=== PATIENT | female | born 1970 | race Caucasian/White ===

== ENCOUNTER → 2020-07-13 12:40 | Outpatient (CLI) | payer OTHER, SELFPAY ==
--- NOTE | ~2020-07-13 | CT_ITS ---
EXAMINATION: CT abdomen pelvis w con DATE: 07/13/2020 13:58 INDICATION: Left upper quadrant and right upper quadrant abdominal pain, left greater than right, geeta n occurs especially postprandially TECHNIQUE: Computed tomography (CT) of the abdomen and pelvis was performed with 100 cc Omnipaque 350 intravenous contrast. Automated exposure control and iterative reconstruction technique were employe d. Exam dose: 684.55 mGy-cm total exam DLP. COMPARISON: None. FINDINGS: Middle lobe calcified pulmonary granuloma. The lung bases are clear of infiltrate or consol idation. Normal heart size. No pericardial or pleural effusion. 5 mm probable left medial segment hepatic cyst. 5 mm probable right lower hepatic cyst. The gallbladder appears unremarkable. No bile duct or pancreatic duct dilatation. No pancreatic mass lesion or calcification. Normal splenic size. Normal morphology of the adrenal glands. Approximately 5 mm probable cyst of the anteromedial mid right kidney and additional very small lower pole right renal cyst is suggested. No urinary tract calculus or hydroureteronephrosis. The urinary bladder, uterus and adnexal areas are unremarkable. Normal caliber of the abdominal aorta. No intraperitoneal or retroperitoneal or pelvic mass lesion or adenopathy or ascites. Normal appendix. No bowel obstruction, bowel wall thickening, pneumatosis or intraperitoneal free air . Numerous fluid containing small bowel segments with scattered air-fluid levels are noted, without d ilatation or wall thickening.. The included skeletal structures are unremarkable. IMPRESSION: Probable hepatic and right renal small cysts Reviewed, dictated and finalized at Location A. Reviewed, dictated and finalized at location B. WARE DEVELOPER
== END ==
PROVIDERS: PCP Student in an Organized Health Care Education/Training Program; Visit Provider Student in an Organized Health Care Education/Training Program
DX: R10.12 Left upper quadrant pain (principal); R93.89 Abnormal findings on diagnostic imaging of other specified body structures
CPT/HCPCS: 74177; Q9967

== ENCOUNTER 2020-07-28 14:38 | Outpatient (CLI) | payer OTHER, SELFPAY ==
--- NOTE | ~2020-07-28 | MM_ITS ---
EXAMINATION: MM screening cody BI w lino HISTORY: Screening mammogram TECHNIQUE: Craniocaudal and mediolateral oblique 3-D tomosynthesis images were obtained and synthetic 2-D images were generated. CAD analysis was submitted and interpreted. COMPARISON: 06/01/2019, 05/15/2018, 04/03/2017 bilateral digital screening mammogram examinations BREAST PARENCHYMAL COMPOSITION: The breasts are heterogeneously dense, which may obscure small masses . FINDINGS: There is no evidence of suspicious mass, calcification, or architectural distortion to sugg est malignancy in either breast. There has been no suspicious interval change. IMPRESSION: 1. No mammographic evidence of malignancy. 2. Recommend routine screening mammography in one year. BI-RADS Category 1: Negative Reviewed, dictated and finalized at location A. E TRAINER
== END 2020-07-28 14:39 | disposition home or self-care (01) ==
LOC: ANHIMG 14:41
PROVIDERS: PCP Student in an Organized Health Care Education/Training Program; Visit Provider Obstetrics & Gynecology
DX: Z12.31 Encounter for screening mammogram for malignant neoplasm of breast (principal)
CPT/HCPCS: 77063; 77067

== ENCOUNTER → 2020-09-17 00:47 | Outpatient (CLI) | payer OTHER, SELFPAY ==
[2020-09-17 18:53] LABS: SARS-CoV-2 RNA PCR Negative
== END ==
PROVIDERS: PCP Student in an Organized Health Care Education/Training Program; Visit Provider Internal Medicine Gastroenterology
DX: Z01.812 Encounter for preprocedural laboratory examination (principal); Z20.822 Contact with and (suspected) exposure to COVID-19
CPT/HCPCS: C9803; U0003; U0005

== ENCOUNTER 2020-09-20 01:07 | Day surgery (SDC) | payer OTHER, SELFPAY ==
[2020-09-05 13:22] VITALS: BMI 25.8
[2020-09-20 08:49] VITALS: BP 134/86; PULSE 94; RESP 16; TEMP 36.9; O2SAT 99; BMI 25.0
[2020-09-20] MEDS: LACTATED RINGERS 1,000 ML 150 ML IV CONT (09:13)
--- NOTE | 2020-09-20 09:55 | WPDANESEPPF ---
Anes - Initial Pre Proc Eval Procedure: Operation Date: 09/20/20 09:45 Proposed Procedures p Esophagogastroduodenoscopy & Colonoscopy - Paresh Faria MD Date/Time: 09/20/20 09:55 Surgeon: Paresh Faria MD Pre Op Diagnosis: cough, GERD, abd pain, family hx colon CA Patient Data Age: 49 Gender: F Height: 5 ft 8 in Weight: 74.5 kg Last Vital Signs Temp 98.5 F 09/20/20 08:49 Pulse 94 09/20/20 08:49 Resp 16 09/20/20 08:49 BP 134/86 09/20/20 08:49 Pulse Ox 99 09/20/20 08:49 Allergies Allergy/AdvReac Type Severity Reaction Status Date / Time adhesive Allergy Unknown Unknown Verified 09/20/20 08:48 Home Medications Medication Instructions Recorded Confirmed Type crisaborole 2 % topical ointment 1 applic TOPICAL BID 08/12/20 09/05/20 History drospirenone 3 mg-ethinyl 1 tablet PO DAILY 08/12/20 09/20/20 History estradiol 0.03 mg tablet trazodone 50 mg tablet 50 mg PO .night tablet 08/12/20 09/20/20 History pantoprazole 20 mg tablet,delayed 20 mg PO QAM #30 tablet 08/15/20 09/20/20 Rx release Patient hx anesthesia problems: none Family hx anesthesia problems: none PMFSH Past Medical History Medical History (Updated 09/20/20 @ 09:51 by Franklin Bright MD) GERD (gastroesophageal reflux disease) Graves disease Hyperthyroidism Surgical History Surgical History Hx of tonsillectomy Family History Family History Mother Hypertension Family history of diabetes mellitus in first degree relative Family history of malignant neoplasm of ovary Sibling Hypertension Social History Social History Smoking packs per day: 0.5 Smoking cigarettes per day: 10.0 Years smoked: 15 Smoking pack-years: 7.50 Smoking status: Former smoker Tobacco type: cigarettes Alcohol intake: current Substance use: current Living arrangements: with family Gender identity (if verbalized by the patient): Female Spiritual care concerns: No Anes - Eval Final PreProcedure Day of Procedure 09/20/20 09:55 Patient weight: normal Heart: regular rate and rhythm Lungs: clear to auscultation Airway: Mallampati scale class II Neurological: alert and oriented Last oral intake: >/= 8 hours ASA classification: II Emergent: no Anesthetic plan: proceed Anesthesia type and monitoring: general GIVS and standard monitoring Informed Consent: The patient's anesthetic plan and its attendant risks and benefits were discussed with the patient/family/POA. Questions were solicited and answers provided to the satisfaction of the patient/family/POA.
--- NOTE | 2020-09-20 10:21 | PM.HPGS ---
History of Present Illness History of Present Illness Consent: Risks, benefits, and alternatives have been discussed and questions answered. Patient agrees to proceed with procedure. Chief complaint: cough, GERD, abd pain, family hx colon CA Narrative: Elsy Angelo is a 49 year old female with abdominal pain and nausea around Xmas time but better now, mother also had colon cancer and she needs her first colonoscopy Review of Systems Constitutional: Constitutional: Denies headache(s) and Denies weakness Eyes: Eyes: Denies blurry vision ENT: Reports Normal hearing present, Denies headache(s) and Denies neck pain Cardiovascular: Cardiovascular: Denies chest pain and Denies dyspnea Respiratory: Respiratory: Denies dyspnea Gastrointestinal: Gastrointestinal: Reports no additional gastrointestinal complaints Genitourinary: Genitourinary: Denies dysuria Musculoskeletal: Musculoskeletal: Denies neck pain Integumentary/Breasts: Skin/Breast: Denies dry skin Neurologic: Reports Normal hearing present, Denies headache(s) and Denies weakness Psychiatric: Psychiatric: Denies anxiety Endocrine: Endocrine: Denies change in body appearance Hematologic/Lymphatic: Hematologic/Lymphatic: Denies easy bleeding Allergic/Immunologic: Allergic/Immunologic: Denies urticaria PMF Past Medical History Medical History (Updated 09/20/20 @ 10:22 by Paresh Faria MD) Cough Family history of colon cancer in mother GERD (gastroesophageal reflux disease) Graves disease Hyperthyroidism Nausea Surgical History Surgical History Hx of tonsillectomy Family History Family History Mother Hypertension Family history of diabetes mellitus in first degree relative Family history of malignant neoplasm of ovary Sibling Hypertension Social History Social History Smoking packs per day: 0.5 Smoking cigarettes per day: 10.0 Years smoked: 15 Smoking pack-years: 7.50 Smoking status: Former smoker Tobacco type: cigarettes Alcohol intake: current Substance use: current Living arrangements: with family Gender identity (if verbalized by the patient): Female Spiritual care concerns: No Meds Home Medications and Allergies Home Medications Medication Instructions Recorded Confirmed Type crisaborole 2 % topical ointment 1 applic TOPICAL BID 08/12/20 09/05/20 History drospirenone 3 mg-ethinyl 1 tablet PO DAILY 08/12/20 09/20/20 History estradiol 0.03 mg tablet trazodone 50 mg tablet 50 mg PO .night tablet 08/12/20 09/20/20 History pantoprazole 20 mg tablet,delayed 20 mg PO QAM #30 tablet 08/15/20 09/20/20 Rx release Allergies Allergy/AdvReac Type Severity Reaction Status Date / Time adhesive Allergy Unknown Unknown Verified 09/20/20 08:48 Vital Signs Vital Signs - 24 hr 09/20/20 08:49 Temperature 98.5 F Pulse Rate 94 Respiratory Rate 16 Blood Pressure 134/86 Pulse Oximetry 99 Exam Const: General: comfortable and no acute distress HENMT: General nose exam: Normal nares present Eyes: General: appearance normal, both eyes and all related structures Neck: Neck: no JVD Resp: Auscultation: clear to auscultation bilaterally Cardio: Rate: regular rate Rhythm: regular rhythm GI: Inspection: non-distended GI Palp: Yes Soft to palpation Skin: General skin exam: normal color Neuro: General: gait normal Speech: normal speech Extrem: General: normal to inspection Psych: Mental Status: mental status grossly normal Assessment and Plan Assessment and plan (1) Cough: Code(s): R05 - Cough Status: Acute Assessment and Plan: egd (2) Nausea: Code(s): R11.0 - Nausea Status: Acute Assessment and Plan: egd with bx (3) Family history of colon can
[2020-09-20] MEDS: CENTRAL LINE FLUSH 10 ML XX (11:07)
[2020-09-20 11:08] VITALS: BP 130/73; PULSE 76; RESP 28; O2SAT 100
[2020-09-20 11:18] VITALS: BP 136/71; PULSE 80; RESP 21; O2SAT 100
[2020-09-20 11:28] VITALS: BP 121/85; PULSE 61; RESP 20; O2SAT 100
== END 2020-09-20 11:36 | disposition home or self-care (01) ==
PROVIDERS: PCP Student in an Organized Health Care Education/Training Program; Visit Provider Internal Medicine Gastroenterology
PROC: 0DJ08ZZ Inspection of Upper Intestinal Tract, Via Natural or Artificial Opening Endoscopic (ICD-10-PCS; CPT 43235; principal; 2020-09-20 09:45)
DX: Z12.11 Encounter for screening for malignant neoplasm of colon (principal); K63.5 Polyp of colon; K64.8 Other hemorrhoids; D12.5 Benign neoplasm of sigmoid colon; D17.5 Benign lipomatous neoplasm of intra-abdominal organs; K29.50 Unspecified chronic gastritis without bleeding; K44.9 Diaphragmatic hernia without obstruction or gangrene; K21.00 Gastro-esophageal reflux disease with esophagitis, without bleeding; E05.00 Thyrotoxicosis with diffuse goiter without thyrotoxic crisis or storm; Z87.891 Personal history of nicotine dependence; Z80.0 Family history of malignant neoplasm of digestive organs
CPT/HCPCS: 45381; 45385; 43239; 88305; C9803; J2001; J2704; J7120; U0003; U0005

== ENCOUNTER 2020-10-24 14:01 | Outpatient (CLI) | payer OTHER, SELFPAY ==
--- NOTE | ~2020-10-24 | US_ITS ---
US retroperitoneal comp 10/24/2020 15:12 Procedure: Realtime transabdominal ultrasound of the kidneys and bladder. Indication: Bilateral flank pain. Comparison: CT dated 07/13/2020 Findings: There is a small hyperechoic mass mid aspect of the right kidney measuring 9 mm correspondi ng to a hypodense mass demonstrated on on CT examination, likely a small angiomyolipoma. No hydroneph rosis or renal stones identified. Bladder is unremarkable. Bilateral ureteral jets visualized. The ri ght kidney measures 10.3 cm and left kidney measures 10.7 cm. Bladder within normal limits. 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 Reviewed, dictated and finalized at location A. 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
== END 2020-10-24 14:02 | disposition home or self-care (01) ==
PROVIDERS: PCP Student in an Organized Health Care Education/Training Program; Visit Provider Student in an Organized Health Care Education/Training Program
DX: R10.9 Unspecified abdominal pain (principal)
CPT/HCPCS: 76770

== ENCOUNTER 2021-08-17 16:44 | Outpatient (CLI) | payer OTHER, SELFPAY ==
--- NOTE | ~2021-08-17 | MM_ITS ---
EXAMINATION: MM screening [facility] BI w lino HISTORY: Screening mammogram TECHNIQUE: Craniocaudal and mediolateral oblique 3-D tomosynthesis images were obtained and synthetic 2-D images were generated. CAD analysis was submitted and interpreted. COMPARISON: 07/28/2020, 06/01/2019, 05/15/2018 BREAST PARENCHYMAL COMPOSITION: The breasts are heterogeneously dense, which may obscure small masses . FINDINGS: There is no evidence of suspicious mass, calcification, or architectural distortion to sugg est malignancy in either breast. There has been no suspicious interval change. IMPRESSION: 1. No mammographic evidence of malignancy. 2. Recommend routine screening mammography in one year. BI-RADS Category 1: Negative Reviewed, dictated and finalized at location A. E THEATER USHER
== END 2021-08-17 16:45 | disposition home or self-care (01) ==
LOC: ANHIMG 16:45
PROVIDERS: PCP Student in an Organized Health Care Education/Training Program; Visit Provider Obstetrics & Gynecology
DX: Z12.31 Encounter for screening mammogram for malignant neoplasm of breast (principal)
CPT/HCPCS: 77063; 77067

== ENCOUNTER 2021-10-19 13:06 | Emergency (ER) | payer OTHER, SELFPAY ==
--- NOTE | ~2021-10-19 | XR_ITS ---
EXAMINATION: [id number] DATE: 10/19/2021 13:29 INDICATION: Right rib pain. Fall. TECHNIQUE: A frontal view of the chest and 2 views on 3 radiographs of the right ribs were obtained. COMPARISON: Chest 2 views 08/17/2012, CT abdomen and pelvis 07/13/2020 FINDINGS: A calcified right lung nodule and calcified right hilar lymph nodes are consistent with old granulomatous disease. No pleural effusion or pneumothorax. The heart size is normal. There are frac tures of right seventh and ninth ribs. IMPRESSION: 1. Fractures of right seventh and ninth ribs. Reviewed, dictated and finalized at location A.
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
[2021-10-19 13:17] VITALS: BP 151/81; PULSE 92; RESP 18; TEMP 37.2; O2SAT 98
--- NOTE | 2021-10-19 13:43 | PC.NURSE ---
Incentive spirameter instruction and return demostration
== END 2021-10-19 13:44 | disposition home or self-care (01) ==
PROVIDERS: Emergency Provider Nurse Practitioner Family; PCP Student in an Organized Health Care Education/Training Program
DX: S22.41XA Multiple fractures of ribs, right side, initial encounter for closed fracture (principal); W05.1XXA Fall from non-moving nonmotorized scooter, initial encounter; K21.9 Gastro-esophageal reflux disease without esophagitis; E05.00 Thyrotoxicosis with diffuse goiter without thyrotoxic crisis or storm; E05.90 Thyrotoxicosis, unspecified without thyrotoxic crisis or storm; F17.210 Nicotine dependence, cigarettes, uncomplicated
CPT/HCPCS: 71101; 99213; G0463

== ENCOUNTER 2022-10-09 15:49 | Outpatient (CLI) | payer OTHER, SELFPAY ==
--- NOTE | ~2022-10-09 | MM_ITS ---
EXAMINATION: MM screening cody BI w lino HISTORY: Screening mammogram TECHNIQUE: Craniocaudal and mediolateral oblique 3-D tomosynthesis images were obtained and synthetic 2-D images were generated. CAD analysis was submitted and interpreted. COMPARISON: August 17, 2021, July 28, 2020, June 01, 2019 bilateral screening mammogram exam inations BREAST PARENCHYMAL COMPOSITION: The breasts are heterogeneously dense, which may obscure small masses . FINDINGS: There is no evidence of suspicious mass, calcification, or architectural distortion to sugg est malignancy in either breast. There has been no suspicious interval change. IMPRESSION: 1. No mammographic evidence of malignancy. 2. Recommend routine screening mammography in one year. BI-RADS Category 1: Negative Reviewed, dictated and finalized at location A.
== END 2022-10-09 15:50 | disposition home or self-care (01) ==
LOC: ANHIMG 15:49
PROVIDERS: PCP Student in an Organized Health Care Education/Training Program; Visit Provider Obstetrics & Gynecology
DX: Z12.31 Encounter for screening mammogram for malignant neoplasm of breast (principal)
CPT/HCPCS: 77063; 77067

== ENCOUNTER 2023-01-17 08:00 | Outpatient (NON) | payer OTHER, SELFPAY | END 2023-01-17 08:01 | disposition home or self-care (01) | LOC: ANHLAB 01-18 07:56 | PROVIDERS: PCP Student in an Organized Health Care Education/Training Program; Visit Provider Internal Medicine Gastroenterology | DX: Z86.010 Personal history of colon polyps (principal) | CPT/HCPCS: 88305 ==

== ENCOUNTER 2023-01-17 08:21 | Day surgery (SDC) | payer OTHER, SELFPAY ==
[2022-12-11 11:43] VITALS: BMI 24.5
--- NOTE | 2022-12-26 12:31 | WPDANESEPPF ---
Anes - Initial Pre Proc Eval Procedure: Operation Date: 12/27/22 07:30 Proposed Procedures p Screening Colonoscopy - Paresh Faria MD Date/Time: 12/26/22 12:31 Surgeon: Paresh Faria MD Pre Op Diagnosis: Family HX Colon Cancer, HX Colon Polyps Patient Data Age: 52 Gender: F Height: 1.73 m Weight: 73 kg Allergies Allergy/AdvReac Type Severity Reaction Status Date / Time adhesive Allergy Unknown Unknown Verified 12/11/22 11:35 Home Medications Medication Instructions Recorded Confirmed Type crisaborole 2 % topical ointment 1 applic topical BID 08/12/20 12/11/22 History (Eucrisa) trazodone 50 mg tablet 50 mg PO .night 08/12/20 12/11/22 History cetirizine 10 mg tablet (Zyrtec) 10 mg PO DAILY 12/11/22 12/11/22 History Results Review: All pre-operative results and documents have been reviewed as part of the pre-operative evaluation. [facility] Past Medical History Medical History (Updated 03/19/22 @ 09:29 by Noelle Cartagena MD) Cough Family history of colon cancer in mother GERD (gastroesophageal reflux disease) Graves disease History of adenomatous polyp of colon Hyperthyroidism Nausea Surgical History Surgical History (Updated 03/19/22 @ 08:20 by Caitie Angelo MA) History of bladder surgery Hx of tonsillectomy Family History Family History Mother Hypertension Family history of diabetes mellitus in first degree relative Family history of malignant neoplasm of ovary Sibling Hypertension Social History Social History Smoking packs per day: 0.5 Smoking cigarettes per day: 10.0 Years smoked: 15 Smoking pack-years: 7.50 Smoking status: Former smoker Tobacco type: cigarettes Alcohol intake: current Drinks per week: 1 Substance use: never Substance use type: does not use Living arrangements: with family Gender identity (if verbalized by the patient): Female Spiritual care concerns: No Anes - Eval Final PreProcedure Day of Procedure 12/26/22 12:31 Patient weight: normal Heart: regular rate and rhythm Lungs: clear to auscultation and normal air movement Airway: Mallampati scale class II Neurological: alert and oriented Last oral intake: >/= 8 hours ASA classification: II Emergent: no Anesthetic plan: proceed Anesthesia type and monitoring: general GIVS and standard monitoring Results Review: All pre-operative results and documents have been reviewed as part of the pre-operative evaluation. Informed Consent: The patient's anesthetic plan and its attendant risks and benefits were discussed with the patient/family/POA. Questions were solicited and answers provided to the satisfaction of the patient/family/POA.
--- NOTE | 2022-12-31 09:41 | SUR.PREOP ---
pt states no change in health hx/no new meds/update provided for new time/date of procedure/ acknowledges understanding.
--- NOTE | 2023-01-16 15:33 | WPDANESEPPF ---
Anes - Initial Pre Proc Eval Procedure: Operation Date: 01/17/23 10:00 Proposed Procedures p Screening Colonoscopy - Paresh Faria MD Date/Time: 01/16/23 15:33 Surgeon: Paresh Faria MD Pre Op Diagnosis: Family HX Colon Cancer, HX Colon Polyps Patient Data Age: 52 Gender: F Height: 1.73 m Weight: 73 kg Allergies Allergy/AdvReac Type Severity Reaction Status Date / Time adhesive Allergy Unknown Unknown Verified 01/17/23 08:53 Home Medications Medication Instructions Recorded Confirmed Type crisaborole 2 % topical ointment 1 applic topical BID 08/12/20 12/11/22 History (Eucrisa) trazodone 50 mg tablet 50 mg PO .night 08/12/20 12/11/22 History cetirizine 10 mg tablet (Zyrtec) 10 mg PO DAILY 12/11/22 12/11/22 History Patient hx anesthesia problems: none Family hx anesthesia problems: none Results Review: All pre-operative results and documents have been reviewed as part of the pre-operative evaluation. [facility] Past Medical History Medical History (Updated 03/19/22 @ 09:29 by Noelle Cartagena MD) Cough Family history of colon cancer in mother GERD (gastroesophageal reflux disease) Graves disease History of adenomatous polyp of colon Hyperthyroidism Nausea Surgical History Surgical History (Updated 03/19/22 @ 08:20 by Caitie Barnes MA) History of bladder surgery Hx of tonsillectomy Family History Family History Mother Hypertension Family history of diabetes mellitus in first degree relative Family history of malignant neoplasm of ovary Sibling Hypertension Social History Social History Smoking packs per day: 0.5 Smoking cigarettes per day: 10.0 Years smoked: 15 Smoking pack-years: 7.50 Smoking status: Former smoker Tobacco type: cigarettes Alcohol intake: current Drinks per week: 1 Substance use: never Substance use type: does not use Living arrangements: with family Gender identity (if verbalized by the patient): Female Spiritual care concerns: No Anes - Eval Final PreProcedure Day of Procedure 01/16/23 15:33 Patient weight: normal Heart: regular rate and rhythm Lungs: clear to auscultation and normal air movement Airway: Mallampati scale class II Neurological: alert and oriented Last oral intake: >/= 8 hours ASA classification: II Emergent: no Anesthetic plan: proceed Anesthesia type and monitoring: general GIVS and standard monitoring Results Review: All pre-operative results and documents have been reviewed as part of the pre-operative evaluation. Informed Consent: The patient's anesthetic plan and its attendant risks and benefits were discussed with the patient/family/POA. Questions were solicited and answers provided to the satisfaction of the patient/family/POA.
[2023-01-17 09:00] VITALS: BP 128/76; PULSE 91; RESP 16; TEMP 36.9; O2SAT 99
[2023-01-17] MEDS: LACTATED RINGERS 1,000 ML 150 ML IV CONT (09:02)
--- NOTE | 2023-01-17 10:03 | PM.HPGS ---
History of Present Illness History of Present Illness Consent: Risks, benefits, and alternatives have been discussed and questions answered. Patient agrees to proceed with procedure. Chief complaint: Family HX Colon Cancer, HX Colon Polyps Narrative: Elsy Angelo is a 52 year old female with colon polyps in 2020, mother had colon cancer Review of Systems Constitutional: Constitutional: Denies headache(s) and Denies weakness Eyes: Eyes: Denies blurry vision ENT: Reports Normal hearing present, Denies headache(s) and Denies neck pain Cardiovascular: Cardiovascular: Denies chest pain and Denies dyspnea Respiratory: Respiratory: Denies dyspnea Gastrointestinal: Gastrointestinal: Reports no additional gastrointestinal complaints Genitourinary: Genitourinary: Denies dysuria Musculoskeletal: Musculoskeletal: Denies neck pain Integumentary/Breasts: Skin/Breast: Denies dry skin Neurologic: Reports Normal hearing present, Denies headache(s) and Denies weakness Psychiatric: Psychiatric: Denies anxiety Endocrine: Endocrine: Denies change in body appearance Hematologic/Lymphatic: Hematologic/Lymphatic: Denies easy bleeding Allergic/Immunologic: Allergic/Immunologic: Denies urticaria PMFSH Past Medical History Medical History (Updated 03/19/22 @ 09:29 by Noelle Cartagena MD) Cough Family history of colon cancer in mother GERD (gastroesophageal reflux disease) Graves disease History of adenomatous polyp of colon Hyperthyroidism Nausea Surgical History Surgical History (Updated 03/19/22 @ 08:20 by Caitie Angelo MA) History of bladder surgery Hx of tonsillectomy Family History Family History Mother Hypertension Family history of diabetes mellitus in first degree relative Family history of malignant neoplasm of ovary Sibling Hypertension Social History Social History Smoking packs per day: 0.5 Smoking cigarettes per day: 10.0 Years smoked: 15 Smoking pack-years: 7.50 Smoking status: Former smoker Tobacco type: cigarettes Alcohol intake: current Drinks per week: 1 Substance use: never Substance use type: does not use Living arrangements: with family Gender identity (if verbalized by the patient): Female Spiritual care concerns: No Meds Home Medications and Allergies Home Medications Medication Instructions Recorded Confirmed Type crisaborole 2 % topical ointment 1 applic topical BID 08/12/20 12/11/22 History (Eucrisa) trazodone 50 mg tablet 50 mg PO .night 08/12/20 12/11/22 History cetirizine 10 mg tablet (Zyrtec) 10 mg PO DAILY 12/11/22 12/11/22 History Allergies Allergy/AdvReac Type Severity Reaction Status Date / Time adhesive Allergy Unknown Unknown Verified 01/17/23 08:53 Vital Signs Vital Signs - 24 hr 01/17/23 09:00 Temperature 98.5 F Pulse Rate 91 Respiratory Rate 16 Blood Pressure 128/76 Pulse Oximetry 99 Oxygen Delivery Room Air Exam Const: General: comfortable and no acute distress HENMT: Face/Nose/Sinus: Normal nares present Eyes: General: appearance normal, both eyes and all related structures Neck: Neck: no JVD Resp: Auscultation: clear to auscultation bilaterally Cardio: Rate: regular rate Rhythm: regular rhythm GI: Inspection: non-distended GI Palp: Yes Soft to palpation Skin: General skin exam: normal color Neuro: General: gait normal Speech: normal speech Extrem: General: normal to inspection Psych: Mental Status: mental status grossly normal Assessment and Plan Assessment and plan (1) Family history of colon cancer in mother: Code(s): Z80.0 - Family history of malignant neoplasm of digestive organs Status: Acute Assessment and Plan: colonoscopy (2) History of adenomatous polyp of colon: Code(s): Z86.010 - Personal history of colonic polyps Status:
[2023-01-17 10:30] VITALS: BP 106/69; PULSE 70; RESP 14; O2SAT 100
[2023-01-17 10:40] VITALS: BP 124/66; PULSE 87; RESP 16; O2SAT 100
[2023-01-17 10:50] VITALS: BP 135/72; PULSE 67; RESP 16; O2SAT 100
--- NOTE | 2023-01-17 11:02 | WPDANESPN ---
Anes - Prog Note Post-Op Date/Time: 01/17/23 11:02 Cardiovascular status: normal Respiratory status: normal Airway patency: baseline Mental status: baseline Post-Op hydration status: normal Vital Signs: Last Vital Signs Temp 36.9 C 01/17/23 09:00 Pulse 67 01/17/23 10:50 Resp 16 01/17/23 10:50 BP 135/72 01/17/23 10:50 Pulse Ox 100 01/17/23 10:50 O2 Del Method Room Air 01/17/23 10:50 Pain Score (VAS): 0 I/O: Intake & Output 01/16/23 01/17/23 01/17/23 23:59 07:59 15:59 Intake Total 650 Balance 650 Post-procedural complaints: none Patient Feedback: Patient satisfied with anesthetic care.
== END 2023-01-17 11:01 | disposition home or self-care (01) ==
PROVIDERS: PCP Student in an Organized Health Care Education/Training Program; Visit Provider Internal Medicine Gastroenterology
PROC: 0DJD8ZZ Inspection of Lower Intestinal Tract, Via Natural or Artificial Opening Endoscopic (ICD-10-PCS; CPT 45378; principal; 2023-01-17 10:00)
DX: Z86.010 Personal history of colon polyps (principal)
CPT/HCPCS: 45385

== ENCOUNTER 2023-06-28 11:40 | Emergency (ER) | payer OTHER, SELFPAY ==
--- NOTE | 2023-06-28 11:52 | ED.URI ---
HPI - URI/Sore Throat General Chief Complaint: Upper Respiratory Infection Stated Complaint: cold symptoms Time Seen by Provider: 06/28/23 11:51 Source: patient Mode of arrival: ambulatory Limitations: no limitations History of Present Illness HPI Narrative: Elsy is a 52-year-old female patient presenting to the clinic today with complaints of cold symptoms times 1 month. She reports that she has recently gone to [place] for a procedure that they put a scope in her nose and wash for acid reflux for 24 hours. Reports that her physician put her on doxycycline prior to this however she stop taking it for the procedure. Is having a lot of right-sided sinus pressure, yellow nasal drainage, and started with dizziness this morning. States she feels as though the room is spinning. She denies any fever, body aches, or chills. MD elicited complaint: nasal congestion Related Data Home Medications Medication Instructions Recorded Confirmed trazodone 50 mg tablet 100 mg PO .night 05/28/23 06/28/23 Allergies Allergy/AdvReac Type Severity Reaction Status Date / Time adhesive Allergy Unknown Unknown Verified 06/28/23 12:18 Review of Systems Review of Systems: Pertinent positives per HPI. Patient denies any fever, chills, rash, headache, visual changes, dizziness, cough, shortness of breath, chest pain, palpitations, nausea, vomiting, diarrhea, constipation, abdominal pain, or any urinary issues. [facility] Past Medical History Medical History Cough Family history of colon cancer in mother GERD (gastroesophageal reflux disease) Graves disease History of adenomatous polyp of colon Hyperthyroidism Nausea Surgical History Surgical History History of bladder surgery Hx of tonsillectomy Family History Family History Mother Hypertension Family history of diabetes mellitus in first degree relative Family history of malignant neoplasm of ovary Sibling Hypertension Social History Social History Smoking packs per day: 0.5 Smoking cigarettes per day: 10.0 Years smoked: 15 Smoking pack-years: 7.50 Smoking status: Former smoker Tobacco type: cigarettes Alcohol intake: current Drinks per week: 1 Substance use: never Substance use type: does not use Living arrangements: with family Gender identity (if verbalized by the patient): Female Spiritual care concerns: No Comments At the time of my signature, I reviewed and agree with the nursing past medical, surgical, social, and family history. There is no relevant family history pertinent to the patient complaint. Exam Narrative: General: Well-developed, well nourished, in no apparent distress Head: Normocephalic, atraumatic Eyes: Pupils equally round and reactive to light bilaterally, EOM intact, sclera and conjunctive clear, no discharge, lids normal Ears: TMs intact and clear, ear canals clear, no drainage, grossly hearing normal. Nose: Nares patent, clear nasal discharge, no inflammation, no sinus tenderness. Mouth: Oral pharynx without lesions or masses, good dentition, MMM. Neck: Supple, trachea midline, no enlargement of anterior or posterior cervical nodes, no thyroid masses or goiter palpable. Cardio: Regular rate and rhythm, s1 and s2 normal, no murmur appreciated. Resp: Clear to auscultation bilaterally, no rhonchi, rales, wheezing or rubs Course Course Emergency Course: Portions of this record may have been created with voice recognition software. Level of Care: Express Care Visit Vital Signs Vital signs: Vital signs reviewed MDM - URI/Sore Throat MDM Narrative Medical decision making narrative: At the time of visit patient is resting comfortably on the exam table. Patient appears to be non
[2023-06-28 12:04] VITALS: BP 136/79; PULSE 82; RESP 18; TEMP 36.8; O2SAT 99
== END 2023-06-28 12:05 | disposition home or self-care (01) ==
PROVIDERS: Emergency Provider Nurse Practitioner Family; PCP Student in an Organized Health Care Education/Training Program
DX: J01.90 Acute sinusitis, unspecified (principal); B96.89 Other specified bacterial agents as the cause of diseases classified elsewhere; R42 Dizziness and giddiness; Z87.891 Personal history of nicotine dependence
CPT/HCPCS: 99213; G0463

== ENCOUNTER 2023-11-05 15:32 | Outpatient (CLI) | payer OTHER, SELFPAY ==
--- NOTE | ~2023-11-05 | MM_ITS ---
EXAMINATION: MM screening cody BI w lino HISTORY: Screening mammogram TECHNIQUE: Craniocaudal and mediolateral oblique 3-D tomosynthesis images were obtained and synthetic 2-D images were generated. CAD analysis was submitted and interpreted. COMPARISON: October 09, 2022, August 17, 2021 bilateral screening mammogram examinations BREAST PARENCHYMAL COMPOSITION: The breasts are heterogeneously dense, which may obscure small masses . FINDINGS: There is no evidence of suspicious mass, calcification, or architectural distortion to sugg est malignancy in either breast. There has been no suspicious interval change. IMPRESSION: 1. No mammographic evidence of malignancy. 2. Recommend routine screening mammography in one year. BI-RADS Category 1: Negative Reviewed, dictated and finalized at location A.
== END 2023-11-05 15:33 | disposition home or self-care (01) ==
PROVIDERS: PCP Student in an Organized Health Care Education/Training Program; Visit Provider Obstetrics & Gynecology
DX: Z12.31 Encounter for screening mammogram for malignant neoplasm of breast (principal)
CPT/HCPCS: 77063; 77067

== ENCOUNTER 2024-07-22 09:17 | Emergency (ER) | payer OTHER, SELFPAY ==
--- NOTE | ~2024-07-22 | CT_ITS ---
EXAMINATION: CTA chest PE protocol DATE: 07/22/2024 10:46 INDICATION: Chest pain radiating to the back. TECHNIQUE: Computed tomography angiography (CTA) of the chest was performed with 100 mL Omnipaque-350 intravenous contrast timed to evaluate the pulmonary arteries. Coronal maximum intensity projection 3D-reconstructions were created by the technologist. Automated exposure control and iterative reconst ruction technique were employed. The dose-length product was 155.34 mGy-cm. COMPARISON: Chest CT 07/14/2018 FINDINGS: There is mild scarring at the lung apices. A calcified right lung nodule and calcified righ t hilar lymph nodes are consistent with old granulomatous disease. There is mild atelectasis bilatera lly. No pleural effusion. There are nodules in the thyroid measuring up to 6 mm, likely not clinicall y significant. The heart size is normal. No pericardial effusion. There is no pulmonary embolus. Ther e is mild thoracic spondylosis. IMPRESSION: 1. No pulmonary embolus. Reviewed, dictated and finalized at location A. FINISHER IMPRESSION: 1. No pulmonary embolus.
--- NOTE | ~2024-07-22 | XR_ITS ---
XR chest 2V Ordering provider: Tacos Swanson MD History: 53 years Female with . chest pain, dull pain across chest . Comparison: July 07, 2018 FINDINGS: MEDIASTINUM: The cardiac silhouette is not enlarged. LUNGS: No infiltrates, effusions or pneumothorax. OTHER: No free air under the diaphragm. IMPRESSION: No acute cardiopulmonary pathology. Reviewed, dictated and finalized at location A. IPLE COIL WINDER
--- NOTE | 2024-07-22 09:18 | ECG_ITS ---
Test Date: 2024-07-22 10:00:33 Measurements Intervals [place] Rate: 67 P: 113 CT: 120 QRS: 124 QRSD: 94 T: 122 QT: 397 QTc: 419 Interpretive Statements SINUS RHYTHM POSSIBLE SEPTAL INFARCT No previous ECG available for comparison Electronically Signed On 07-22-2024 14:31:30 TRANSFORMATION CONSULTANT by Sofía Garcia M.D.
[2024-07-22 09:19] VITALS: BP 129/77; PULSE 80; RESP 20; TEMP 36.6; O2SAT 98
--- NOTE | 2024-07-22 09:52 | ED.CHESTPAIN ---
HPI - Chest Pain General Chief Complaint: Chest Pain Stated Complaint: chest pain Time Seen by Provider: 07/22/24 09:44 History of Present Illness HPI narrative: 53-year-old female with history of GERD presents to the emergency department for chest pain. Patient states her chest pain started last night while she was lying in bed. States it was a tight sensation across the top of her chest that radiated to her back. She states the sensation lasted for approximately an hour until she fell asleep. States she woke up has been having the tightness persists throughout the top of her chest with mild radiation to the back but does state that the pain overall has improved. She cannot identify any aggravating or alleviating factors including exertional symptoms. She denies lower extremity edema, hemoptysis, fever, abdominal pain, history of VTE. No recent surgeries or hospitalizations. She denies shortness of breath and palpitations. Admits to a remote history of smoking but has not smoked in several years. Patient is established with a anesthesiology fellow due to extensive family history of cardiac disease. States she has had 2 siblings with ages in the 40s and 60s with sudden cardiac . Motor Vehicle Dispatcher is with [facility] but she is unsure of the name of her anesthesiology fellow. States as far as she knows her workup has been unremarkable with her anesthesiology fellow. Reports her last stress test was approximately 3 years ago and unremarkable. She does admit to a chronic cough and states she has been recently sick with URI symptoms that has been diagnosed with walking pneumonia and bronchitis. She has been on Z-Hugo and steroids with some improvement. Related Data Home Medications ?Medication ?Instructions ?Recorded ?Confirmed ?Last Taken ?Type trazodone 50 mg tablet 100 mg PO .night 05/28/23 01/06/24 Unknown History Allergies Allergy/AdvReac Type Severity Reaction Status Date / Time adhesive Allergy Unknown Unknown Verified 01/06/24 10:17 Review of Systems Review of Systems: All systems reviewed & are unremarkable except as noted in HPI and below PMFSH Past Medical History Medical History Screening mammogram, encounter for Hiatal hernia History of adenomatous polyp of colon Family history of colon cancer in mother Nausea Cough GERD (gastroesophageal reflux disease) Hyperthyroidism Graves disease Surgical History Surgical History History of bladder surgery Hx of tonsillectomy Family History Family History Mother Hypertension Family history of diabetes mellitus in first degree relative Family history of malignant neoplasm of ovary Sibling Hypertension Social History Social History Smoking packs per day: 0.5 Smoking cigarettes per day: 10.0 Years smoked: 15 Smoking pack-years: 7.50 Smoking status: Former smoker Tobacco type: cigarettes Alcohol intake: current Drinks per week: 1 Substance use: never Substance use type: does not use Do You Feel Safe in your Home?: Yes Current Housing: Decline to Answer Concerned About Future Housing: Decline to Answer Difficulty Paying Gas/Electric Bills: Decline to Answer Difficulty Paying for Meds: Decline to Answer Currently Unemployed: Decline to Answer Education: Decline to Answer Difficulty w/ Childcare or Family Care: Decline to Answer Living arrangements: with family Occupation/Education: occupation Gender identity (if verbalized by the patient): Female Sexual Orientation (if Verbalized by the Patient): Straight or Heterosexual Spiritual care concerns: No Exam Narrative: GENERAL: Well-appearing, well-nourished, and in no acute distress. HEAD: Normocephalic, atraumatic. EYES: PERRLA and EOMI. ENT: Nares clear, no rhinorrhea or epistaxis. Mucous membranes moist. NECK: Supple. CHEST: Clear to auscultation. No respiratory distress. HEART: Regular rate and rhythm. No murmur heard. Normal peripheral pulses. ABDOMEN: Soft, nontender, nondistended, normal active bowel sounds. EXTREMITIES: Normal range of motion. No edema. Negative Homans bilaterally SKIN: Warm, dry, no rash. NEURO: No focal deficits. Alert and oriented x3 Course Vital Signs Vital signs: Vital Signs Temperature 98 F 07/22/24 09:19 Pulse Rate 80 07/22/24 09:19 Respiratory Rate 20 07/22/24 09:19 Blood Pressure 129/77 07/22/24 09:19 Pulse Oximetry 98 07/22/24 09:19 Oxygen Delivery Room Air 07/22/24 09:19 Temperature 98 F 07/22/24 09:19 Pulse Rate 80 07/22/24 13:55 Respiratory Rate 16 07/22/24 13:55 Blood Pressure 136/75 07/22/24 13:55 Pulse Oximetry 98 07/22/24 13:55 Oxygen Delivery Room Air 07/22/24 10:57 MDM - Chest Pain MDM Narrative Medical decision making narrative: 53-year-old female with history of GERD and family history of sudden cardiac presents to the ED with chest pain that started last night. Describes it as a chest pressure across the top of her chest that radiates to her back. No aggravating or alleviating factors. She does state the symptoms do seem to have improved upon my evaluation. Her vitals are stable. She is resting comfortably in the exam bed. Exam significant for the above. Given her radiation of symptoms, will obtain CTA chest PE. EKG shows normal sinus rhythm with rate of 67 ppm, normal OR interval at 120, normal QRS duration, normal QTC, no ischemic changes. Troponin undetectable. Lab work shows no leukocytosis or anemia. Chemistries are unremarkable. BNP normal when age adjusted. Lipase is normal. CTA chest PE shows no PE, no pneumonia, no pleural effusion. There are lung nodules which patient is aware of. Patient received Pepcid and GI cocktail with improvement. Suspect GI source, however given family history will obtain 3 hour troponin. Three hour troponin is again negative. Patient was updated on workup. Advised to follow-up with cardiology. Heart score is 2. Discussed return precautions. She is agreeable with the plan verbalized understanding. Discharged in stable condition. Lab Data 07/22/24 09:55 07/22/24 09:55 Labs: Lab Results 07/22/24 07/22/24 07/22/24 Range/Units 09:55 09:56 12:15 WBC 5.7 (4.5-10.0) K/mm3 RBC 4.74 (4.2-5.4) M/mm3 Hgb 14.0 (12.0-15.0) g/dL Hct 42.9 (37.0-47.0) % MCV 90.5 (80-100) fl MCH 29.5 (26-34) pg MCHC 32.6 (32-36) g/dl RDW 13.8 (11.5-14.5) % Plt Count 231 (150-375) k/mm3 MPV 10.0 (7.4-10.4) fl Immature Gran % (Auto) 0.2 (0-0.5) % Neut % (Auto) 60.3 (45.5-73.1) % Lymph % (Auto) 26.6 (18.3-44.2) % Desha % (Auto) 9.3 H (2.6-8.5) % Eos % (Auto) 3.1 (0-4.4) % Baso % (Auto) 0.5 (0.2-1.2) % Lymph # (Auto) 1.52 (0.9-3.2) K/mm3 Desha # (Auto) 0.5 (0.1-0.6) K/mm3 Eos # (Auto) 0.2 (0-0.3) K/mm3 Baso # (Auto) 0.0 (0.0-0.1) K/mm3 Abs Immat Gran (auto) 0.01 (0.00-0.031) K/mm3 Absolute Neuts (auto) 3.5 (1.3-6.7) K/mm3 Absolute Nucleated RBC 0.000 (0.0-0.012) K/mm3 Nucleated RBC % 0.0 (0.0-0.2) % PT 13.6 (11.1-14.7) Seconds INR 1.0 APTT 29.0 (22.3-36.8) Seconds Sodium 138 (137-145) mmol/L Potassium 4.0 (3.4-5.0) mmol/L Chloride 104 (98-107) mmol/L Carbon Dioxide 28 (22-30) mmol/L Anion Gap 6 (4-12) mmol/L BUN 12 (7-17) mg/dL Creatinine 0.67 L (0.7-1.0) mg/dL Estim Creat Clear Calc 85 ml/min Estimated GFR > 60 (59 - ) Glucose 101 (65-110) mg/dL Calcium 8.9 (8.4-10.2) mg/dL Total Bilirubin 0.8 (0.2-1.3) mg/dL AST 23 (14-36) U/L ALT 22 (6-35) U/L Alkaline Phosphatase 57 (38-126) U/L Troponin I < 0.012 < 0.012 (0.000-0.034) ng/mL NT-Pro-B Natriuret Pep 163 H (19.9-100) pg/mL Total Protein 7.0 (6.3-8.2) g/dL Albumin 4.1 (3.5-5.1) g/dL Lipase 87 (23-300) U/L Discharge Plan Discharge Clinical Impression: Atypical chest pain, Pulmonary nodule Patient Disposition: Home, Self-Care Condition: Stable Instructions: Antibiotic Form, Chest Pain (ED) Additional Instructions: Take the Pepcid injury to lidocaine and Maalox for acid reflux. Follow up with her anesthesiology fellow. Return to the emergency department if you develop new or worsening symptoms. Follow up with her PCP regarding the pulmonary nodule. Patient Language: Tristanian Prescriptions: New famotidine 20 mg tablet 20 mg PO DAILY Qty: 20 0RF alum-mag hydroxide-simeth [Maalox Maximum Strength] 400-400-40 mg/5 mL suspension 5 ml PO QID PRN (Reason: indigestion) Qty: 3000 0RF lidocaine HCl [Lidocaine Viscous] 2 % solution 1 applic PO BID PRN (Reason: pain) Qty: 100 0RF No Action trazodone 50 mg tablet 100 mg PO .night progesterone micronized 200 mg capsule 200 mg PO QHS Qty: 90 1RF estradiol 0.5 mg tablet 0.5 mg PO DAILY 90 Days Qty: 90 1RF Follow-up/Referrals: Yasmine,DO Ovidio [Primary Care Provider] - Time of Disposition: 13:40 Quality HEART score for chest pain patients History: slightly suspicious ECG: normal Age: > 45 and < 65 years Risk factors: 1 or 2 risk factors Troponin: < or = to 1x normal limit Heart score: 2
[2024-07-22 10:01] LABS: Basophils Percent Auto 0.5 % (0.2-1.2); Eosinophils Absolute Auto 0.2 K/mm3 (0-0.3); Eosinophils Percent Auto 3.1 % (0-4.4); Hematocrit 42.9 % (37.0-47.0); Immature Granulocyte Absolute 0.01 K/mm3 (0.00-0.031); Immature Granulocyte Percent A 0.2 % (0-0.5); Lymphocytes Absolute Auto 1.52 K/mm3 (0.9-3.2); Lymphocytes Percent Auto 26.6 % (18.3-44.2); Mean Corpuscular HGB Conc 32.6 g/dl (32-36); Mean Corpuscular Hemoglobin 29.5 pg (26-34); Mean Corpuscular Volume 90.5 fl (80-100); Monocytes Absolute Auto 0.5 K/mm3 (0.1-0.6); Monocytes Percent Auto 9.3 % (2.6-8.5); Neutrophils Absolute Auto 3.5 K/mm3 (1.3-6.7); Neutrophils Percent Auto 60.3 % (45.5-73.1); Platelet Count Result 231 k/mm3 (150-375); Red Blood Count 4.74 M/mm3 (4.2-5.4); Red Cell Distribution Width 13.8 % (11.5-14.5); White Blood Count 5.7 K/mm3 (4.5-10.0)
[2024-07-22 10:15] LABS: Alanine Aminotransferase 22 U/L (6-35); Albumin Level 4.1 g/dL (3.5-5.1); Alkaline Phosphatase 57 U/L (38-126); Anion Gap 6 mmol/L (4-12); Aspartate Amino Transferase 23 U/L (14-36); Bilirubin,Total 0.8 mg/dL (0.2-1.3); Blood Urea Nitrogen 12 mg/dL (7-17); Calcium 8.9 mg/dL (8.4-10.2); Carbon Dioxide 28 mmol/L (22-30); Chloride 104 mmol/L (98-107); Estimated CRCL calculation 85 ml/min; Estimated Glomerular Filt Rate > 60; Glucose 101 mg/dL (65-110); Lipase 87 U/L (23-300); Prothrombin Time 13.6 Seconds (11.1-14.7); Sodium 138 mmol/L (137-145)
[2024-07-22 10:24] LABS: NT Pro B Type Natriuretic Pept 163 pg/mL (19.9-100)
[2024-07-22 10:27] LABS: Troponin I < 0.012 ng/mL (0.000-0.034)
[2024-07-22] MEDS: BELLADONNA ALK/PHENOB ELIX 10 ML, MAG HYDROX/ALUMINUM HYD/SIMETH 30 ML, LIDOCAINE 2% VI... PO (10:32)
[2024-07-22] MEDS: FAMOTIDINE 20 MG/2 ML VIAL IV PUSH (10:32)
[2024-07-22 10:57] VITALS: O2SAT 100
[2024-07-22 11:12] VITALS: PULSE 67; RESP 20; O2SAT 98
[2024-07-22 11:27] VITALS: BP 127/79; PULSE 58; RESP 16; O2SAT 98
--- NOTE | 2024-07-22 12:09 | ECG_ITS ---
Test Date: 2024-07-22 12:13:22 Measurements Intervals [place] Rate: 57 P: 46 PA: 121 QRS: 121 QRSD: 92 T: 127 QT: 435 QTc: 425 Interpretive Statements SINUS BRADYCARDIA WITH SINUS ARRHYTHMIA POSSIBLE SEPTAL INFARCT NONSPECIFIC T WAVE ABNORMALITY Compared to ECG 07/22/2024 10:00:33 NO SIGNIFICANT CHANGES Electronically Signed On 07-22-2024 14:36:41 [employer] by Sofía Garcia M.D.
[2024-07-22 13:06] LABS: Troponin I < 0.012 ng/mL (0.000-0.034)
[2024-07-22 13:55] VITALS: BP 136/75; PULSE 80; RESP 16; O2SAT 98
== END 2024-07-22 13:57 | disposition home or self-care (01) ==
PROVIDERS: Emergency Medicine; Emergency Provider Physician Assistant; PCP Student in an Organized Health Care Education/Training Program
DX: R07.89 Other chest pain (principal); R91.1 Solitary pulmonary nodule; Z87.891 Personal history of nicotine dependence
CPT/HCPCS: 36415; 71046; 71275; 80053; 83690; 83880; 84484; 85025; 85610; 85730; 93005; 96374; 99284; A9270; Q9967

== ENCOUNTER 2025-03-17 15:25 | Outpatient (CLI) | payer OTHER, SELFPAY ==
--- OUTSIDE RECORDS SUMMARY | 2001-09-10 19:00 | XMS_ITS | Continuity of Care Document ---
Author Organization [facility] Address [address] [place] [address] Phone Care Team Providers Care Maintenance Technician 2Nd Shift Name Role Phone Inman OD, Arsalan Unavailable Unavailable Advance Directives Directive Yes / No Effective Date File Name No Information Encounters Encounter Description Practice Location Reason(s) For Visit Diagnoses Date Provider Providers Copied on Encounter [facility], [address], [place], [place], [id number], [place] tel:[phone] [facility] No Information Mar-0 7-200 2 Inman OD Arsalan. [address] , [address], [place], [address], [place]. tel:[phone] Family History Family Member Type Diagnosis Age At Onset No Information Payers Payer name Insurance type Covered alliance party ID Authoriza tion(s) No Information Social History Type Description Quantity Date Captured Comments Sex Female Smoking Status No Information Chief Complaint And Reason For Visit No Information Reason For Referral Reason For Referral No Information History Of Present Illness Encounter Date Complaint History Of Prese nt Illness No Information Functional Status Date Functional Assessmen t No Information Instructions Date Instruction Additional Infor mation No Information Assessments Type Assessment Date No Information Patient Care Teams Name Effective Dates (start - stop) Status Members No Information
--- OUTSIDE RECORDS SUMMARY | 2025-02-18 12:30 | XMS_ITS ---
Author Organization [facility] ([address]) Address [address] [place] [address] Care Team Providers Care Steaming Machine Operator Name Role Phone Ovidio Underwood Primary Care Provider Bernadette Muhammad [phone] Jacyk Infante Unavailable REASON FOR VISIT ARC Follow Up/SCIT Encounters Encounter Location Date Provider Diagnosis [facility] [address] [place] [address] 02/18/2025 Bernadette Farley Plan Of Treatment No Information Progress Notes * Elsy ANGELO NDOB: [birth year] (54 yo F)Acc No.[id number]:02/18/2025 Progress Notes Patient: Elys FUCHS Provider: Omayra Farley PA-C :1970 A ge:54 Y S ex:Female Date:02/18/2025 Address:[address] [place], [id number] Pcp:Ovidio Underwood Subjective: * Chief Complaints: * 1 . ARC Follow Up/SCIT. * Medical History: Objective: * Vitals: Assessment: Plan: * Treatment: * Billing Information: * Visit Code: * Procedure Codes: * Electronic signature of Cm Farley PA-C [email or web address] on 03/17/2025 at 03:47 PM CDT Sign off status: Pending * Provider: Omayra Farley PA-C Date: 0 02/18/2025 Generated for Radha li/Tima/Shazia on: 0 03/17/2025 03:47 PM CDT
--- NOTE | ~2025-03-17 | MM_ITS ---
EXAMINATION: MM screening cody BI w lino HISTORY: Screening TECHNIQUE: Craniocaudal and mediolateral oblique 3-D tomosynthesis images were obtained and synthetic 2-D images were generated. CAD analysis was submitted and interpreted. COMPARISON: Comparison to multiple prior studies sequentially, with oldest reviewed study dated , 06/01/2019 BREAST PARENCHYMAL COMPOSITION: The breasts are heterogeneously dense, which may obscure small masses. FINDINGS: There is no evidence of suspicious mass, calcification, or architectural distortion to suggest malignancy in either breast. IMPRESSION: 1. No mammographic evidence of malignancy. 2. Recommend routine screening mammography in one year. BI-RADS Category 1: Negative Reviewed, dictated and finalized at location B.
--- OUTSIDE RECORDS SUMMARY | 2025-03-17 15:47 | XMS_ITS | Encounter Summary ---
Author Organization [facility] Address [address] [place] [address] Care Team Providers Care Social Insurance Administrator Name Role Phone Ovidio Underwood DO Primary Care Provide r Encounter Details Date Type Department Care Team (Late st Contact Info) Description 07/22/2024 Orders Only [facility] Health Information Management [address] [place] [id number] Scanning, Provider Social History Tobacco Use Types Packs/Day Years Used Date Smoking Tobacco: Former Smokeless Tobacco: Never Personal Safety Answer Date Recorded Have you ever been in or are you currently in a harmful physical or emotional relationship or is someone making you feel afraid or unsafe? 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 Gender Identity Not on file Sexual Orientation Not on file documented as of this encounter Plan of Treatment Not on file documented as of this encounter Procedures Procedure Name Priority Date/Time Associated Diagnosis Comments SCAN - RADIOLOGY/IMAGING 07/22/2024 documented in this encounter Results * SCAN - RADIOLOGY/IMAGING (07/22/2024) Anatomical Region Laterality Modality Other us Provider Scanning Edited Result - Final documented in this encounter Visit Diagnoses Not on filedocumented in this encounter Care Teams Social Insurance Administrator Relationship Specialty Start Date End Date Ovidio Underwood DO [address] [place] [id number] PCP - General Family Medicine 03/28/20 documented as of this encounter
--- OUTSIDE RECORDS SUMMARY | 2025-03-17 15:47 | XMS_ITS | Clinical Summary ---
Author Organization [facility] Address [address] [place] [address] Care Team Providers Care Drum Tester Name Role Phone Ovidio Underwood Ezekiel ARAYA Primary Care Provider + Allergies Active Allergy Reactions Criticality Noted Date Comments Wound Dressing Adhesive Rash Medium 01/11/2025 Medications Trelegy Ellipta 200-62.5-25 MCG/ACT AEROSOL POWDER, BREATH ACTIVATED take 1 Puff by inhalation. 5 Active nitroGLYCERIN (NITROSTAT) 0.4 MG SL Tablet 0.4 mg by Sublingual route. 5 Active pantoprazole (PROTONIX) 40 MG Tablet Delayed Response Take 40 mg by mouth daily. 5 Active Progesterone 200 MG Capsule Take 200 mg by mouth. 4 Active traZODone (DESYREL) 100 MG Tablet 100 mg. 3 Active Estradiol-Noret hindrone Acet 1-0.5 MG Tablet Take 1 Tablet by mouth daily. 4 Active EPINEPHrine (EPIPEN) 0.3 MG/0.3ML Solution Auto-injector Active cetirizine (ZyrTEC) 10 MG Tablet every 12 hours 3 Active Active Problems Problem Noted Date Diagnosed Date Monocytosis 01/11/2025 Encounters Date Type Department Care Team Description 01/11/2025 11:30 AM CDT Lab [facility] [address] [address] Lab, [facility] [place] Monocytosis 01/11/2025 10:30 AM CDT Office Visit [facility] [address] [address] Ronald Bustamante MD Monocytosis (Primary Dx) 01/11/2025 Travel from Last 3 Months Immunizations Immunization Administration Dates Next Due Covid-19, Mrna, Lnp-s, Pf, 30 Mcg/0.3 Ml Dose (P fizer) 06/12/2021 Family History Medical History Relation Name Comments Heart Attack Brother 1 Heart Attack Brother 2 Cancer Father Stroke Mother Relation Name Status Comments Brother 1 Brother 2 Father Mother Social History Tobacco Use Types Packs/Day Years Used Date Smoking Tobacco: Former Cigarettes Smokeless Tobacco: Never Tobacco Cessation:Counseling Given: No Alcohol Use Standard Drinks/Week Comments Yes 0 (1 standard drink = 0.6 oz pur e alcohol) occasional Sexually Active Control Partners Comments Yes Comments Unknown Sex and Gender Information Value Date Recorded Sex Assigned at Not on file Legal Sex Female 3:36 PM MANAGER TECHNOLOGY Gender Identity Not on file Sexual Orientation Not on file Last Filed Vital Signs Vital Sign Reading Time Taken Comments Blood Pressure 124/82 01/11/2025 11:15 AM CDT Pulse 65 01/11/2025 11:15 AM CDT Temperature 36.6 C (97.8 F) 01/11/2025 11:15 AM CDT Respiratory Rate - - Oxygen Saturation 99% 01/11/2025 11:15 AM CDT Inhaled Oxygen Concentration - - Weight 73.7 kg (162 lb 6.4 oz) 01/11/2025 11:15 AM CDT Height 172.7 cm (5' 8) 01/11/2025 11:15 AM CDT Body Mass Index 24.69 01/11/2025 11:15 AM CDT Plan of Treatment Upcoming Encounters Date Type Department Care Team (Late st Contact Info) Description 05/14/2025 8:00 AM MANAGER TECHNOLOGY Office Visit [facility] [address] [address] Ronald Bustamante MD [address] [place] [address] Health Maintenance Due Date Last Done Comments Mammogram 1971 TdaP Immunization 1971 Hepatitis B Immunization (1 of 3 - 19+ 3-dose series) 10/15/1990 Pap Smear 10/15/1992 Cervical Cancer Screening (CCS) 10/15/2001 HPV/Cotest 10/15/2001 Cologuard 10/15/2016 Colonoscopy 10/15/2016 Colorectal Cancer Screening 10/15/2016 Immunochemical Fecal Occult Blood 10/15/2016 Pneumococcal Immunization (5 0+ years) (1 of 1 - PCV) 10/15/2021 Zoster Immunization (1 of 2) 10/15/2021 Influenza Immunization (#1) 03/08/202504/08, 05/03/2016 SARS-COV-2 Immunization ( season) 2025 06/12/2021, 09/09/2020, 08/12/2020 Respiratory Syncytial Virus (RSV) Immunization (Adult) (1 - 1-dose 75+ series) 10/15/2046 Hepatitis C Virus (HCV) Screening Completed 10/12/2020 Human Papillomavirus (HPV) Immunization Aged Out No longer eligible b ased on patient's age to complete this topic Meningococcal Immunization (ACWY) Aged Out No longer eligible b ased on patient's age to complete this topic Rotavirus Immunization Aged Out No lo nger eligible based on patient's age to complete this topic Procedures Procedure Name Priority Date/Time Associated Diagnosis Comments COMPLETE BLOOD COUNT (CBC) WITH DIFF Routine 01/11/2025 11:35 AM CDT Monocytosis LACTATE DEHYDROGENASE (LD) Routine 01/11/2025 11:35 AM CDT Monocytosis ERYTHROCYTE SEDIMENTATION RATE (ESR) Routine 01/11/2025 11:35 AM CDT Monocytosis from Last 3 Months Results * ERYTHROCYTE SEDIMENTATION RATE (ESR) (01/11/2025 11:35 AM CDT) Erythrocyte Sedimentation Rate 10 0 - 30 mm/hr [facility] Blood 01/11/2025 11:3 5 AM CDT Narrative [facility] - 01/11/2025 12:50 PM CDT Release to patient->Immediate Ronald Bustamante MD HEMATOLOGY ORDERABLES Final Result Performing Organization Address City/[facility]/ZIP Co de Phone Number [facility] SUSTAINABLE DEVELOPMENT POLIC[facility] [place] [address], [place] [phone] * (ABNORMAL) LACTATE DEHYDROGENASE (LD) (01/11/2025 11:35 AM CDT) LDH 134(L) 140 - 271 U/L [facility]STAINABLE [facility]ELOPMENT [facility]ICY [facility] Blood 01/11/2025 11:3 5 AM CDT Narrative [facility]CER SUSTAINABLE DEVELOPMENT POLICY [facility] - 01/11/2025 12:37 PM CDT Release to patient->Immediate Ronald Bustamante MD CHEMISTRY ORDERABLES Final R esult Performing Organization Address City/[facility] Co de Phone Number [facility]CER SUSTAINABLE DEVELOPMENT POLICY [facility]NA[facility] [place] [address], [place] [phone] * COMPLETE BLOOD COUNT (CBC) WITH DIFF (01/11/2025 11:35 AM CDT) WBC 7.2 4.0 - 10.0 10*3/uL [facility] SUSTAINABLE DEVELOPMENT POLIC[facility] HGB 14.0 11.2 - 15.7 g/dL CANCER SUSTAINABLE DEVELOPMENT POLICY [facility] HCT 43.4 34.1 - 44.9 % [facility]ER SUSTAINABLE DEVELOPMENT POLICY [facility] PLT 259 163 - 369 10*3/uL [facility] SUSTAINABLE [facility]ELOPMENT POLICY [facility] MPV 9.9 9.4 - 12.4 fL [facility] SUSTAINABLE DEVELOPMENT POLICY [facility] RBC 4.80 3.93 - 5.22 10*6/uL [facility] SUSTAINABLE DEVELOPMENT POLICY [facility] MCV 90 79 - 95 fL [facility] MCH 29.2 25.6 - 32.2 pg [facility]ER SUSTAINABLE DEVELOPMENT POLICY ANA[facility]ST [facility] MCHC 32.3 32.2 - 36.5 g/dL [facility]ER SUSTAINABLE DEVELOPMENT POLICY A[facility] RDW 12.9 11.6 - 14.4 % [facility]ER SUSTAINABLE DEVELOPMENT POLICY [facility] Absolute Neutrophil Count 4,505 cells/uL [facility] Absolute Seg Count 4,505 1,440 - 6,600 cells/uL [facility] SUSTAINABLE DEVELOPMENT POLICY [facility] Absolute Lymph Count 1,573 760 - 4,000 cells/uL CANCER SUSTAINABLE DEVELOPMENT POLICY ANALYST [facility] Absolute Sarpy Count 787 160 - 1,200 cells/uL CANCER SUSTAINABLE DEVELOPMENT POLICY ANA[facility]ST [facility] Absolute Eos Count 215 0 - 300 cells/uL CAN[facility]ER SUSTAINABLE DEVELOPMENT POLICY ANALYST [facility] Absolute Baso Count 72 0 - 100 cells/uL [facility]ER SUSTAINABLE DEVELOPMENT POLICY [facility] Segmented Neutrophils 63 36 - 66 % [facility]ER SUSTAINABLE DEVELOPMENT POLICY [facility] Lymphocytes 22 19 - 40 % [facility] Monocytes 11 4 - 12 % [facility] Eosinophils 3 0 - 3 % [facility] Basophils 1 0 - 1 % [facility] WBC Estimate Normal [facility]ER SUSTAINABLE DEVELOPMENT [facility]ICY [facility] Platelet Estimate Normal [facility]ER SUSTAINABLE DEVELOPMENT POLICY [facility] RBC Morphology Normal CANCE R SUSTAINABLE DEVELOPMENT POLICY ANALYST [facility] Blood 01/11/2025 11:3 5 AM CDT Narrative [facility] - 01/11/2025 2:17 PM CDT Release to patient->Immediate us Ronald Bustamante MD HEMATOLOGY ORDERABLES Final Result [facility]ER SUSTAINABLE DEVELOPMENT POLICY [facility] [place] [address], from Last 3 Months Insurance Care Teams Drum Tester Relationship Specialty Start Date End Date Ovidio Underwood DO [address] [place] [id number] PCP - General Family Medicine 08/07/24
--- OUTSIDE RECORDS SUMMARY | 2025-03-17 15:47 | XMS_ITS | Patient Health Record ---
Author Organization [facility] ([address]) Address [address] [place] [address] Care Team Providers Care Steel Detailer Name Role Phone DeclanmingOvidio tubbs Primary Care Provider Bernadette Muhammad Unavailable [phone] Jacky Infante Unavailable Unavailable Deng Lawrence Unavailable [phone] Allergies No Known Allergies Reason For Referral No Information Medications Medication SIG (Take, Route, Frequency, Duration) Notes Start Date End Date Status PEPCID 20 mg 1 tab(s) orally Qday ; Duration: 30 days Active EPIPEN 2-GRISELDA 0.3 mg as directed intramuscularly once; Duration: 30 day(s) Active Xyzal Allergy 24HR 5 MG 1 tablet PO daily Not-Taking NASAL WASHES N/A as directed intranasally as needed; Duration: 30 Active SIT (CLUSTER) VARIABLE PER SCHEDULE SC PER SCHEDULE; Duration: TO BE DETERMINED *Please review for potential replacement for e-prescription and drug interaction check* 01/24/2023 Active MONTELUKAST 10 mg 1 tab(s) orally once a day; Duration: 30 day(s) Active ZyrTEC Allergy 10 MG 1 tab(s) orally once a day takes twice a day Active EpiPen 2-Griselda 0.3 MG/0.3ML as directed intramuscularly once; Duration: 30 day(s) Active CETIRIZINE 10 mg 1 tab(s) orally BID; Duration: 30 days Active VANICREAM MOISTURIZING CREAM N/A as necessary Apply to external surfaces as often as needed to face, hands, feet or body For daily use by the entire family; Duration: 30 day(s) Active Eucrisa 2 % (Prior Auth#:[id number]) Active EUCRISA 2% (Prior Auth#:[id number]) Active Montelukast Sodium 10 MG 1 tab(s) orally once a day; Duration: 30 day(s) Active MONTELUKAST SODIUM 10 mg 1 tab(s) orally once a day; Duration: 30 day(s) Active traZODone HCl 50MG 1 BY MOUTH AT BEDTIME *Please review and pick correct strength-formula tion from [employer] options. If intended option is not shown, discontinue and re-order from Quick Search* Active TRAZADONE 50MG 1 BY MOUTH AT BEDTIME *Please re view for potential replacement for e-prescription and drug interaction check* Active Pepcid 20 mg 1 tab(s) orally Qday ; Duration: 30 days Active Montelukast Sodium 10 MG 1 tab(s) orally once a day; Duration: 30 day(s) Active Cetirizine HCl 10 MG 1 tab(s) orally BID; Duration: 30 days Active SIT (TRADITIONAL) variable per schedule SC per schedule; Duration: to be determined Active Nasacort Allergy 24HR 55 MCG/ACT 2 sprays, each nostril intranasally, avoid nasal septum daily; Duration: 30 days Not-Taking Immunizations Vaccine Route Administration Date Status Comme nts NOC Flucelevax Quadrivalent Unknown 03/17/2020 Refused Social History Tobacco Use: Social History Observation Description Date Details (start date - stop date) Never Smoker NA - NA Smoking Smart Form: Question Answer Notes Are you a: former smoker How long it has been since you last smoked? > 10 years Tobacco Control (Standard) Question Answer Notes Tobacco use: Nonsmoker Problems Problem Type SNOMED Code ICD Code Onset Dates Problem Status W/U Status Risk Notes Problem Chronic allergic conjunctivitis (84376559) Other chronic allergic conjunctivitis (H10.45) Active confirmed Problem Allergic rhinitis caused by pollen (disorder) (91270932) Allergic rhinitis due to pollen (J30.1) Active confirmed Problem Allergic rhinitis caused by animal hair and dander (921010978548437) Allergic rhinitis due to animal (cat) (dog) hair and dander (J30.81) Active confirmed Problem Allergic rhinitis (58998363) Other allergic rhinitis (J30.89) Active confirmed Problem Allergic rhinitis caused by pollen (disorder) (35262454) Allergic rhinitis due to pollen (J30.1) Active confirmed Problem Allergic rhinitis caused by animal hair and dander (378278661781499) Allergic rhinitis due to animal (cat) (dog) hair and dander (J30.81) Active confirmed Problem Allergic rhinitis (80394980) Other allergic rhinitis (J30.89) Active confirmed Problem Chronic allergic conjunctivitis (98118672) Other chronic allergic conjunctivitis (H10.45) Active confirmed Problem Cough (95561192) Cough (R05) Active confirmed Problem Eruption of skin (788909829) Rash and other nonspecific skin eruption (R21) Active confirmed Problem Urticaria (434020585) Other urticaria (L50.8) Active confirmed Problem Chronic cough (24508359) Chronic cough (R05.3) Active confirmed Encounters Encounter Location Date Provider Diagnosis [facility] [address] [place] [phone] 12/15/2024 Deng Lawrence Allergic rhinitis du e to pollen J30.1 ; Allergic rhinitis due to animal (cat) (dog) hair and dander J30.81 ; Other allergic rhinitis J30.89 and Other chronic allergic conjunctivitis H10.45 [facility] [address] [place] [phone] 11/09/2024 Deng Lawrence Allergic rhinitis du e to pollen J30.1 ; Allergic rhinitis due to animal (cat) (dog) hair and dander J30.81 ; Other allergic rhinitis J30.89 and Other chronic allergic conjunctivitis H10.45 [facility] [address] [place] [phone] 10/08/2024 Deng Lawrence Allergic rhinitis du e to pollen J30.1 ; Allergic rhinitis due to animal (cat) (dog) hair and dander J30.81 ; Other allergic rhinitis J30.89 and Other chronic allergic conjunctivitis H10.45 [facility] [address] [place] [phone] 09/09/2024 Deng Lawrence Allergic rhinitis du e to pollen J30.1 ; Allergic rhinitis due to animal (cat) (dog) hair and dander J30.81 ; Other allergic rhinitis J30.89 and Other chronic allergic conjunctivitis H10.45 [facility] [address] [place] [phone] 09/01/2024 Deng Howard Allergic rhinitis du e to pollen J30.1 ; Allergic rhinitis due to animal (cat) (dog) hair and dander J30.81 ; Other allergic rhinitis J30.89 and Other chronic allergic conjunctivitis H10.45 [facility] [address] [place] [phone] 08/25/2024 Dengvilla Lawrence Allergic rhinitis du e to pollen J30.1 ; Allergic rhinitis due to animal (cat) (dog) hair and dander J30.81 ; Other allergic rhinitis J30.89 and Other chronic allergic conjunctivitis H10.45 [facility] [address] [place] [phone] 07/30/2024 Deng Lawrence Allergic rhinitis du e to pollen J30.1 ; Allergic rhinitis due to animal (cat) (dog) hair and dander J30.81 ; Other allergic rhinitis J30.89 and Other chronic allergic conjunctivitis H10.45 [facility] [address] [place] [phone] 06/16/2024 Deng Lawrence Allergic rhinitis du e to pollen J30.1 ; Allergic rhinitis due to animal (cat) (dog) hair and dander J30.81 ; Other allergic rhinitis J30.89 and Other chronic allergic conjunctivitis H10.45 [facility] [address] [place] [phone] 05/06/2024 Deng Lawrence Allergic rhinitis du e to pollen J30.1 ; Allergic rhinitis due to animal (cat) (dog) hair and dander J30.81 ; Other allergic rhinitis J30.89 and Other chronic allergic conjunctivitis H10.45 [facility] [address] [place] [phone] 04/09/2024 Deng Lawrence Allergic rhinitis du e to pollen J30.1 ; Allergic rhinitis due to animal (cat) (dog) hair and dander J30.81 ; Other allergic rhinitis J30.89 and Other chronic allergic conjunctivitis H10.45 [facility] [address] [place] [address] 01/13/2025 Deng Howard Allergic rhinitis du e to pollen J30.1 ; Allergic rhinitis due to animal (cat) (dog) hair and dander J30.81 ; Other allergic rhinitis J30.89 and Other chronic allergic conjunctivitis H10.45 Assessments Encounter Date Diagnosis (ICD Code) Assessment Notes Treatment Notes Treatment Clinical Notes Section Notes 04/09/2024 Allergic rhinitis due to pollen (ICD-10 - J30.1) 06/16/2024 Allergic rhinitis due to pollen (ICD-10 - J30.1) 07/30/2024 Allergic rhinitis due to pollen (ICD-10 - J30.1) 08/25/2024 Allergic rhinitis due to pollen (ICD-10 - J30.1) 09/01/2024 Allergic rhinitis due to pollen (ICD-10 - J30.1) 09/09/2024 Allergic rhinitis due to pollen (ICD-10 - J30.1) 10/08/2024 Allergic rhinitis due to pollen (ICD-10 - J30.1) 11/09/2024 Allergic rhinitis due to pollen (ICD-10 - J30.1) 12/15/2024 Allergic rhinitis due to pollen (ICD-10 - J30.1) 01/13/2025 Allergic rhinitis due to pollen (ICD-10 - J30.1) 05/06/2024 Allergic rhinitis due to pollen (ICD-10 - J30.1) 05/06/2024 Allergic rhinitis due to animal (cat) (dog) hair and dander (ICD-10 - J30.81) 01/13/2025 Allergic rhinitis due to animal (cat) (dog) hair and dander (ICD-10 - J30.81) 12/15/2024 Allergic rhinitis due to animal (cat) (dog) hair and dander (ICD-10 - J30.81) 11/09/2024 Allergic rhinitis due to animal (cat) (dog) hair and dander (ICD-10 - J30.81) 10/08/2024 Allergic rhinitis due to animal (cat) (dog) hair and dander (ICD-10 - J30.81) 09/09/2024 Allergic rhinitis due to animal (cat) (dog) hair and dander (ICD-10 - J30.81) 09/01/2024 Allergic rhinitis due to animal (cat) (dog) hair and dander (ICD-10 - J30.81) 08/25/2024 Allergic rhinitis due to animal (cat) (dog) hair and dander (ICD-10 - J30.81) 07/30/2024 Allergic rhinitis due to animal (cat) (dog) hair and dander (ICD-10 - J30.81) 06/16/2024 Allergic rhinitis due to animal (cat) (dog) hair and dander (ICD-10 - J30.81) 04/09/2024 Allergic rhinitis due to animal (cat) (dog) hair and dander (ICD-10 - J30.81) 04/09/2024 Other allergic rhinitis (ICD-10 - J30.89) 06/16/2024 Other allergic rhinitis (ICD-10 - J30.89) 07/30/2024 Other allergic rhinitis (ICD-10 - J30.89) 08/25/2024 Other allergic rhinitis (ICD-10 - J30.89) 09/01/2024 Other allergic rhinitis (ICD-10 - J30.89) 09/09/2024 Other allergic rhinitis (ICD-10 - J30.89) 10/08/2024 Other allergic rhinitis (ICD-10 - J30.89) 11/09/2024 Other allergic rhinitis (ICD-10 - J30.89) 12/15/2024 Other allergic rhinitis (ICD-10 - J30.89) 01/13/2025 Other allergic rhinitis (ICD-10 - J30.89) 05/06/2024 Other allergic rhinitis (ICD-10 - J30.89) 05/06/2024 Other chronic allergic conjunctivitis (ICD-10 - H10.45) 01/13/2025 Other chronic allergic conjunctivitis (ICD-10 - H10.45) 12/15/2024 Other chronic allergic conjunctivitis (ICD-10 - H10.45) 11/09/2024 Other chronic allergic conjunctivitis (ICD-10 - H10.45) 10/08/2024 Other chronic allergic conjunctivitis (ICD-10 - H10.45) 09/09/2024 Other chronic allergic conjunctivitis (ICD-10 - H10.45) 09/01/2024 Other chronic allergic conjunctivitis (ICD-10 - H10.45) 08/25/2024 Other chronic allergic conjunctivitis (ICD-10 - H10.45) 07/30/2024 Other chronic allergic conjunctivitis (ICD-10 - H10.45) 06/16/2024 Other chronic allergic conjunctivitis (ICD-10 - H10.45) 04/09/2024 Other chronic allergic conjunctivitis (ICD-10 - H10.45) Plan Of Treatment No Information Insurance Providers Payer Name Payer Address Payer Phone Subscriber Number Group Number Insured Name Patient Relationship to Insured Coverage Start Date Coverage End Date [facility] [employer] [address] [address] [place] [address] [id number] Elsy Angelo Self - patient is the insured Medical (General) History Medical History History ICD Code Other specified intracranial injury without loss of consciousness, initial encounter S06.890A Surgical History Surgery Date(Month/Year)
--- OUTSIDE RECORDS SUMMARY | 2025-03-17 15:47 | XMS_ITS | Clinical Summary ---
Author Organization [facility] Address [address] [place] [address] Care Team Providers Care Recovery Coach Name Role Phone Ovidio Underwood Primary Care Provide r Allergies Active Allergy Reactions Criticality Noted Date Comments Adhesive Tape-Silicones Rash Medium Medications cetirizine (ZyrTEC) 10 mg tablet every 12 hours Activ e crisaborole (Eucrisa) 2 % ointment as needed 0 Active EPINEPHrine (EpiPen 2-Hugo) 0.3 mg/0.3 mL auto-injection syringe Active levocetirizine (Xyzal) 5 mg tablet daily Active montelukast (SINGULAIR) 10 mg tablet 3 Active traZODone (DESYREL) 100 mg tablet 3 Active valACYclovir (VALTREX) 1 gram tablet TAKE 2 TABLETS BY MOUTH TWICE DAILY FOR 4 DAYS 3 Active budesonide-form oteroL (SYMBICORT) 160-4.5 mcg/actuation inhalerIndicati ons:Maintenance Therapy for Asthma Inhale 2 puffs 2 (two) times a day Rinse mouth with water after use. Do not swallow. 10.2 g 3 3 Active Additional Information Patient not taking.Reported on 08/03/[address] (PROTONIX) 40 mg EC tablet 5 Active nitroglycerin (NITROSTAT) 0.4 mg SL tabletIndicatio ns:acute episode of anginal pain Place 1 tablet (0.4 mg total) under the tongue every 5 (five) minutes as needed for chest pain May repeat dose every 5 minutes for up to 3 doses total. 25 tablet 3 5 Active Active Problems Problem Noted Date Diagnosed Date Family history of ischemic heart disease 024 Other chest pain 01/16/2021 Cough 01/16/2021 Dizziness and giddiness 02/10/2018 Photophobia 11/14/2017 Post-concussion syndrome 08/12/2017 Sleep disorder 08/12/2017 Headache, chronic daily 08/12/2017 Neck pain, chronic 08/12/2017 Toxic multinodular goiter with no crisis 014 Overview (10/11/2016): TOX MULTNOD GOIT NO JOSE Abnormal weight loss 11/21/2013 Overview (10/11/2016): ABNORMAL LOSS OF WEIGHT Surgical History Surgery Date Site/Laterality Comments COLONOSCOPY January 2023 Medical History Medical History Date Comments Personal history of other en docrine, nutritional and metabolic disease History of thyroid d isorder - (Added by TW Conv) Thyroid disease Acid indigestion Allergic rhinitis 1992 Family History Medical History Relation Name Comments cardiac event Brother 1 Heart disease Brother 2 Throat cancer Father Family history of malignant neoplasm of larynx - (Added by TW Conv) Atrial fibrillation Mother Hypertension Other 1 Family history of hypertension - (Added by TW Conv) Coronary artery disease Other 2 Fami ly history of coronary artery disease - (Added by TW Conv) Diabetes Other 3 Family history of diabetes mellitus - (Added by TW Conv) Relation Name Status Comments Brother 1 Brother 2 (Age 51) Brother 3 Alive Father (Age 75) Mother Alive Other 1 Other 2 Other 3 Sister Alive Social History Tobacco Use Types Packs/Day Years Used Date Smoking Tobacco: Former Smokeless Tobacco: Never Tobacco Cessation:Counseling Given: Not Answered Personal Safety Answer Date Recorded Have you ever been in or are you currently in a harmful physical or emotional relationship or is someone making you feel afraid or unsafe? Denies 06/25/2023 Comments Unknown Sex and Gender Information Value Date Recorded Sex Assigned at Not on file Legal Sex Female 10:39 AM [employer] Gender Identity Not on file Sexual Orientation Not on file Obstetrics History Last Filed Vital Signs Vital Sign Reading Time Taken Comments Blood Pressure 128/80 08/03/2024 11:37 AM [employer] Pulse 62 08/03/2024 11:37 AM [employer] Temperature 36.2 C (97.1 F) 06/04/2023 9:11 AM [employer] Respiratory Rate 20 06/25/2023 7:53 AM [employer] Oxygen Saturation 99% 08/03/2024 11:37 AM [employer] Inhaled Oxygen Concentration - - Weight 72.6 kg (160 lb) 08/03/2024 11:37 AM [employer] Height 172.7 cm (5' 8) 08/03/2024 11:37 AM [employer] Body Mass Index 24.33 08/03/2024 11:37 AM [employer] Plan of Treatment Health Maintenance Due Date Last Done Comments Breast Cancer Screening-Mammogram 1971 Cervical Cancer Screening 1971 Colon Cancer Screening-Colonoscopy 1971 Depression Screening 1971 Hepatitis C Screening 1971 DTaP/Tdap/Td Vaccine (1 - Tdap) 10/15/1982 Hepatitis B Screening 10/15/1989 Regular Well Visit/Exam 18-64 10/15/1989 Pneumococcal vaccine <65 (1 of 2 - PCV) 10/15/1990 Zoster Vaccine (1 of 2) 10/15/2021 Covid-19 Vaccine ( season) 2025 06/12/2021, 09/09/2020, 08/12/2020 Influenza Vaccine (#1) 2025 05/04/2016, 2015 Insurance [facility] [employer] [employer] Address: [facility] [address] [id number] [facility] [employer] [facility] [employer] Address: [address] [place] [address] [facility] [employer] [facility] [employer] [place] [address] Care Teams Recovery Coach Relationship Specialty Start Date End Date Ovidio Underwood DO [address] [place] [id number] PCP - General Family Medicine 03/28/20
== END 2025-03-17 15:26 | disposition home or self-care (01) ==
LOC: ANHFOHIMG 15:27
PROVIDERS: PCP Student in an Organized Health Care Education/Training Program; Visit Provider Obstetrics & Gynecology
DX: Z12.31 Encounter for screening mammogram for malignant neoplasm of breast (principal)
CPT/HCPCS: 77063; 77067